=== PATIENT | male | born 1935 | race Caucasian/White ===

== ENCOUNTER 2016-11-23 10:00 | Outpatient (RCR) ==
--- NOTE | 2016-11-19 17:14 | RS.OPPTEV2 ---
Date of Note: 11/18/16 Visit #: 1 Date of Evaluation: 11/18/16 Treatment Diagnosis: Right LE pain History of Condition/Mechanism of Injury:: Patient reports having radiating symptoms into the right LE for years, but states constant pain and tingling into the right LE has been for the last few months. Prior Level of Function.....Patient was independent with: ADL's, Self Care, Caregiving, Ambulation/Mobility, Community Integration/Access Functional Limitations: ADL's, Sitting, Standing, Bending, Squatting, Ambulation , Community Access/Integration Current Subjective/complaints:: Patient reports right hip pain that is constant. States he has no symptoms on the left side. States Sitting for very long is the worst. He can stand and walk without too much discomfort. States he has tingling and numbness at times into the right LE. States the right knee will give out at times. He reports that he sleeps well. He is able to lay on the right side. He has not had any injections or procedures to his low back. Treatment Side (optional): Right Medical History Hx Home Medications: None Patient's Goals: His goal is to get relief of back pain. Pain Assessment - Pain Description Pain Location: right hip Current Pain Intensity: 5/10 Worst Pain Intensity: not quantified Functional Outcome Measure LE Functional Scale: 46 (46/80=42.5% impairment) - G Codes & Severity Modifier G Codes & Modifier: body position current CK. body position goal CI Source of G Code score: LE functional scale Observation - Observation Posture: Forward Head, Rounded Shoulders, Decreased Lumbar Lordosis Gait - Gait Pattern Gait Comments: Patient demonstrates a slow gait speed. He ambulates without an assistive device, with short stride length and a narrow base of support. - ROM Lumbar Flexion: Hand reach to Mid-Thighs Sidebending to Left: Reach to Mid-thigh Sidebending to Right: Reach to Mid-thigh Lumbar Spine ROM Limitations: Soft Tissue Tightness Comments: Patient reports muscle tightness with lumbar flexion. Reports no significant increased pain with lumbar flexion or extension. Does reports a little increased pain in the right low back/hip with left sidebending. Bilateral LE AROM WFL's. Patient reports pain with right hip internal rotation. - Strength Comments: Bilateral hip flexion and IR 4-/5, all else 4/5. Bilateral knees 4+/5 , ankles 4+/5. - Special Tests ROWENA Test: Negative Left, Negative Right SLR Test: Negative Left, Negative Right Seated Dural Stretch Test: Negative Left, Negative Right SI Joint Compression: Negative Palpation Comments:: Tenderness reports over the right SI region and superior and mid gluteal musculature. Increased muscle tone in this region. Sensation - Sensation Right Lower Extremity: Intact/Normal Left Lower Extremity: Intact/Normal Additional Comments: Additional Comments: SLR bilaterally to 25-30 degrees. - Treatment Modality: Ultrasound Parameters/Method Applied: 1.6 w/cm2 continuous X 10 mins to right SI and upper gluteal region . Patient Position: Left Sidelying Interventions - Exercise/Activities/Manual Therapy Exercises/Activities: none Manual Therapy: none - Charges Total Direct Minutes: 55 mins Total Treatment Time: 55 mins Procedures billed for this date of service:: PHI [place], US Assessment Assessment: Patient presents to therapy with a diagnosis of radiculopathy from the lumbar region. He exhibits symptoms of Piriformis syndrome: pain with sitting and hip IR, tenderness and increased muscle tone of the right gluteal region. Extremely tight hamstrings. Presents with potential to get relief of symptoms with modalities, stretching, and manual therapy to reduce his symptoms. Patient Education: Education of diagnosis, Body/Joint mechanics, Education of Plan of Care Rehab Potential: Good Short Term Goals Goal #1: Pt independent in basic HEP. Goal to be met by: 12/03/16 Goal #2: Right LE pain decreased to less than constant. Goal to be met by: 12/03/16 Goal #3: Bilateral SLR increased to 40 degrees. Goal to be met by: 12/03/16 General Assignment Reporter Goals Goal #1: Pt knows HEP and to cont. ex's to maintain functional level at D/C. Goal to be met by: 12/29/16 Goal #2: Score on LE functional scale improved to <19% impairment. Goal to be met by: 12/29/16 Goal #3: Pt to tolerate sitting as needed without right LE pain. Goal to be met by: 12/29/16 Plan - Treatment to be Provided Procedures: Therapeutic Exercises, Therapeutic Activity, Manual Therapy, Patient Education Modalities: Electrical Stimulation, Ultrasound/Phonophoresis, Cryotherapy, Hot Packs - Treatment Plan Frequency: 2-3 X week Duration: 4 weeks ORDER # VISITS AND/OR THROUGH DATE: 12/29/16 - Treatment Code (1) Leg pain Qualifiers: Laterality: right Qualified Description: Pain of right lower extremity Qualifier Code(s): (M79.604) Pain in right leg (2) Piriformis syndrome of right side Comments: G57.01
--- NOTE | 2016-11-23 11:01 | RS.OPPTDN ---
Subjective Date of Note: 11/23/16 Visit #: 2 Date of Evaluation: 11/18/16 Treatment Diagnosis: Right LE pain Current Subjective/complaints:: Patient states he did OK after the first visit. Offers no new problems today. Continues to report difficulty sitting, such as in a car. Pain Assessment - Pain Description Pain Location: right hip Current Pain Intensity: 5/10 - Treatment Modality: Ultrasound Parameters/Method Applied: 1.8 w/cm2 continuous X 10 mins to right SI and superior gluteal musculature. Patient Position: Left Sidelying - Heat/Cryotherapy Treatment: Hot Pack (X 15 mins to lumbar spine prior to US and stretching) Interventions - Exercise/Activities/Manual Therapy Exercises/Activities: Assisted patient with stretching to bilateral HS, SKTC, and Piriformis, with emphasis on the right LE. Total minutes of Exercise: X 14 Manual Therapy: none - Objective Findings Observations,measurements,etc.: bilateral HS very tight. Demonstrates greater tightness of hip external rotators on the right. - Charges Total Direct Minutes: 24 mins Total Treatment Time: 39 mins Procedures billed for this date of service:: HP, US, Ex Assessment: Patient demonstrates continued symptoms of Piriformis syndrome. He demonstrates good potential to benefit from progressed stretchinig to increase mobility of the right hip and decrease his right LE pain. Patient Education: Education of diagnosis, Body/Joint mechanics Short Term Goals Goal #1: Pt independent in basic HEP. Goal to be met by: 12/03/16 Goal #2: Right LE pain decreased to less than constant. Goal to be met by: 12/03/16 Goal #3: Bilateral SLR increased to 40 degrees. Goal to be met by: 12/03/16 It Software Developer Goals Goal #1: Pt knows HEP and to cont. ex's to maintain functional level at D/C. Goal to be met by: 12/29/16 Goal #2: Score on LE functional scale improved to <19% impairment. Goal to be met by: 12/29/16 Goal #3: Pt to tolerate sitting as needed without right LE pain. Goal to be met by: 12/29/16 Goal #4: Pt will demonstrate good lumbar AROM without pain. Goal to be met by: 12/29/16 Plan PLAN OF CARE EXPIRES ON:: 12/29/16 ORDER # VISITS AND/OR THROUGH DATE: 12/29/16 PLAN: Continue Plan of Care
== END 2016-11-24 ==
PROVIDERS: ATTEND Physician Assistant Medical
DX: M54.16 Radiculopathy, lumbar region (principal)

== ENCOUNTER 2016-12-23 10:30 | Outpatient (RCR) ==
--- NOTE | 2016-11-25 15:29 | RS.OPPTDN ---
Subjective Date of Note: 11/25/16 Visit #: 3 Date of Evaluation: 11/18/16 Treatment Diagnosis: Right LE pain Current Subjective/complaints:: Patient reports therapy may be helping a little. States he use to be able to walk quite a distance, but he cannot now. States his limited ambulation is not just because of the right LE pain. Pain Assessment - Pain Description Pain Location: right hip Current Pain Intensity: not quantifed - Treatment Modality: Ultrasound Parameters/Method Applied: 1.8 w/cms continuous X 15 mins to right lumbar/ SI region, and superior gluteal musculature. Patient Position: Left Sidelying - Heat/Cryotherapy Treatment: Hot Pack (X 20 mins to lumbar region) Interventions - Exercise/Activities/Manual Therapy Exercises/Activities: Assisted patient with stretching to bilateral HS, SKTC, and Piriformis, with emphasis on the right LE. Total minutes of Exercise: X 11 mins Manual Therapy: none - Charges Total Direct Minutes: 26 mins Total Treatment Time: 46 mins Procedures billed for this date of service:: HP, US, Ex Assessment: Patient reports possibly seeing a little improvement with therapy. Demonstrates the need for progressed stretching and modalities to reduce pain. Will progress to stability exercises once pain starts to subside more. Patient Education: Education of diagnosis, Activity Modification Short Term Goals Goal #1: Pt independent in basic HEP. Goal to be met by: 12/03/16 Goal #2: Right LE pain decreased to less than constant. Goal to be met by: 12/03/16 Goal #3: Bilateral SLR increased to 40 degrees. Goal to be met by: 12/03/16 Half-Way Goals Goal #1: Pt knows HEP and to cont. ex's to maintain functional level at D/C. Goal to be met by: 12/29/16 Goal #2: Score on LE functional scale improved to <19% impairment. Goal to be met by: 12/29/16 Goal #3: Pt to tolerate sitting as needed without right LE pain. Goal to be met by: 12/29/16 Goal #4: Pt will demonstrate good lumbar AROM without pain. Goal to be met by: 12/29/16 Plan PLAN OF CARE EXPIRES ON:: 12/29/16 ORDER # VISITS AND/OR THROUGH DATE: 12/29/16 PLAN: Progress Exercises
--- NOTE | 2016-11-29 11:03 | RS.OPPTDN ---
Subjective Date of Note: 11/29/16 Visit #: 4 Date of Evaluation: 11/18/16 Treatment Diagnosis: Right LE pain Current Subjective/complaints:: States symptoms are about the same. Pain in the right LE remains constant. Pain Assessment - Pain Description Pain Location: right hip Current Pain Intensity: not quantifed - Treatment Modality: Ultrasound Parameters/Method Applied: X 10 mins @ 1.8 w/cm2 continuous throughout the right lower lumbar, sacral, upper gluteal musculature. Patient Position: Left Sidelying - Heat/Cryotherapy Treatment: Hot Pack (X 20 mins to right hip/low back in left sidelying) Interventions - Exercise/Activities/Manual Therapy Exercises/Activities: Assisted patient with stretching to bilateral HS, SKTC, and Piriformis, with emphasis on the right LE. Total minutes of Exercise: X 13 mins Manual Therapy: none - Objective Findings Observations,measurements,etc.: bilateral HS continue to be very tight. right hip ER's very tight. - Charges Total Direct Minutes: 23 mins Total Treatment Time: 43 mins Procedures billed for this date of service:: Hp, US, EX Assessment: Patient continues to report constant right LE pain. States symptoms are "about the same". May change treatment on next visit to Estim and EX. Short Term Goals Goal #1: Pt independent in basic HEP. Goal to be met by: 12/03/16 Goal #2: Right LE pain decreased to less than constant. Goal to be met by: 12/03/16 Progress towards Goal:: No Change Goal #3: Bilateral SLR increased to 40 degrees. Goal to be met by: 12/03/16 Progress towards Goal:: Progressing Home Connect Lpn Goals Goal #1: Pt knows HEP and to cont. ex's to maintain functional level at D/C. Goal to be met by: 12/29/16 Goal #2: Score on LE functional scale improved to <19% impairment. Goal to be met by: 12/29/16 Goal #3: Pt to tolerate sitting as needed without right LE pain. Goal to be met by: 12/29/16 Goal #4: Pt will demonstrate good lumbar AROM without pain. Goal to be met by: 12/29/16 Plan PLAN OF CARE EXPIRES ON:: 12/29/16 ORDER # VISITS AND/OR THROUGH DATE: 12/29/16 PLAN: Continue Plan of Care
--- NOTE | 2016-12-02 10:46 | RS.OPPTDN ---
Subjective Date of Note: 12/02/16 Visit #: 5 Date of Evaluation: 11/18/16 Treatment Diagnosis: Right LE pain Current Subjective/complaints:: Mr. Grider states his symptoms are still pretty much constant in the right LE. Pain Assessment - Pain Description Pain Location: right hip Current Pain Intensity: not quantifed - Treatment Modality: Electrical Stim Unattended Parameters/Method Applied: 4 large pads: one lead to the right SI joint and right mid gluteal region, the other lead with pads on both sides of the lumbar spine X 20 mins at 120 peak volts HVGS. (prior to stretching) Patient Position: Left Sidelying Comments: Patient reports treatment felt good. - Heat/Cryotherapy Treatment: Hot Pack (with Estim to low back/right sacral/hip) Interventions - Exercise/Activities/Manual Therapy Exercises/Activities: Assisted patient with stretching to bilateral HS, SKTC, and Piriformis, with emphasis on the right LE. Total minutes of Exercise: X 14 mins Manual Therapy: none - Objective Findings Observations,measurements,etc.: right SLR 40-45 degrees, left SLR 35-40 degrees. - Charges Total Direct Minutes: 14 mins Total Treatment Time: 34 mins Procedures billed for this date of service:: Estim w/ Hp, EX Assessment: Patient with continue constant right LE pain. Changed treatment to Estim and continued with stretching to reduce his radiating symptoms. Patient Education: Body/Joint mechanics Short Term Goals Goal #1: Pt independent in basic HEP. Goal to be met by: 12/03/16 Goal #2: Right LE pain decreased to less than constant. Goal to be met by: 12/03/16 Progress towards Goal:: No Change Goal #3: Bilateral SLR increased to 40 degrees. Goal to be met by: 12/03/16 Progress towards Goal:: Progressing [facility] Goals Goal #1: Pt knows HEP and to cont. ex's to maintain functional level at D/C. Goal to be met by: 12/29/16 Goal #2: Score on LE functional scale improved to <19% impairment. Goal to be met by: 12/29/16 Goal #3: Pt to tolerate sitting as needed without right LE pain. Goal to be met by: 12/29/16 Goal #4: Pt will demonstrate good lumbar AROM without pain. Goal to be met by: 12/29/16 Plan PLAN OF CARE EXPIRES ON:: 12/29/16 ORDER # VISITS AND/OR THROUGH DATE: 12/29/16 PLAN: Continue Plan of Care
--- NOTE | 2016-12-06 11:07 | RS.OPPTDN ---
Subjective Date of Note: 12/06/16 Visit #: 6 Date of Evaluation: 11/18/16 Treatment Diagnosis: Right LE pain Current Subjective/complaints:: Patient reports he can ride in a car better without as much right LE pain. When asked if that meant his symptoms were no longer constant, he said "I can't tell". Pain Assessment - Pain Description Pain Location: right hip Current Pain Intensity: not quantifed - Treatment Modality: Electrical Stim Unattended Parameters/Method Applied: 4 large pads, one lead to right SI region and gluteal , other lead to left and right side of low back, X 20 mins HVGS up to 110 peak volts. Patient Position: Left Sidelying - Heat/Cryotherapy Treatment: Hot Pack (with EStim to back and right sacral/gluteal prior to stretching) Interventions - Exercise/Activities/Manual Therapy Exercises/Activities: Assisted patient with stretching to bilateral HS, SKTC, and Piriformis, with emphasis on the right LE. Patient instructed in HS stretching with use of towel or sheet behind the knee to extend his reach. Total minutes of Exercise: 13 mins Manual Therapy: none - Charges Total Direct Minutes: 13 mins Total Treatment Time: 33 mins Procedures billed for this date of service:: Hp, EStim, EX Assessment: Patient reports less right LE pain while riding in the car. He is unsure of frequency of pain. He demonstrates understanding of HS stretch and shows the ability to try it at home. He demonstrates potential to benefit from continued stretching and modalities to reduce his symptoms. Patient Education: Education of diagnosis, Home Exercise Program, Education of Plan of Care Short Term Goals Goal #1: Pt independent in basic HEP. Goal to be met by: 12/03/16 Progress towards Goal:: Progressing Goal #2: Right LE pain decreased to less than constant. Goal to be met by: 12/03/16 Progress towards Goal:: No Change Goal #3: Bilateral SLR increased to 40 degrees. Goal to be met by: 12/03/16 Progress towards Goal:: Progressing Comments:: Right HS flexibility 45-50 degrees, left 40 degrees. Residential Goals Goal #1: Pt knows HEP and to cont. ex's to maintain functional level at D/C. Goal to be met by: 12/29/16 Goal #2: Score on LE functional scale improved to <19% impairment. Goal to be met by: 12/29/16 Goal #3: Pt to tolerate sitting as needed without right LE pain. Goal to be met by: 12/29/16 Progress towards goal: Progressing Goal #4: Pt will demonstrate good lumbar AROM without pain. Goal to be met by: 12/29/16 Plan PLAN OF CARE EXPIRES ON:: 12/29/16 ORDER # VISITS AND/OR THROUGH DATE: 12/29/16 PLAN: Progress Exercises
--- NOTE | 2016-12-09 11:26 | RS.CSNOTE ---
PT Case Note Date of Note: 12/09/16 Title of document: Case Note Note: This is patient's 7th session. S: Patient says treatment is helping his back. Reports he performs daily exercises, but has also done this for years to stay active. He says sitting has become easier. O: Patient receives moist heat and hivolt estim (2 large pads @ 160 pk volts to the R lumbar paraspinals and SI joint) x 20 mins in sidelying. He receives passive stretching of SKTC, HS, Piriformis, and lower trunk rotation x 5. A: Patient verbalizing improved pain following treatment and is able to sit for more prolonged time without as much pain. He remains with moderate tightness with limited range to the R HS. P: Patient should continue receiving modalities and therex to further decrease his back pain/radiculopathy. No charge this date
--- NOTE | 2016-12-15 14:40 | RS.CSNOTE ---
PT Case Note Date of Note: 12/15/16 Title of document: 8 Note: This is the patients visit #8. S: Patient says treatment is helping his back pain but would like to go back to US. States he is working on HEP. O: Patient receives moist heat [id number] to the lowback in left side-lying prior to US and EX. US at 1.5w/cm2 [id number] to the bilateral lumbar paraspinals and S-I joint areas, also in left side-lying. He receives passive stretching of SKTC, HS, Piriformis, and lower trunk rotation. A: Patient continues to report improvement. He states he is doing more walking aroun his home. P: Continue modalities and EX to reduce pain and increase functional activity level. No charges for todays treatment session.
--- NOTE | 2016-12-16 13:44 | RS.CSNOTE ---
PT Case Note Date of Note: 12/16/16 Title of document: 9 Note: Patient reports he continues to feel better and denies any radicular symptoms or tenderness to the R LB. States he is "getting around" easier as well. He receives moist heat to mid to low back in supine x 20 mins. Continuous @ 1.5 w/cm2 to the R lumbar paraspinals in L sidelying. He receives passive stretching for SKTC, HS, Piriformis, and lower trunk rotation. Patient performs pillow squeezes, isometric hip abd x 10. He aj all stretching and added exercises today. He should continue with modalities and therex. He is to be reassessed next session. No charges this date.
--- NOTE | 2016-12-20 11:55 | RS.OPPTDN ---
Subjective Date of Note: 12/20/16 Visit #: 10 Date of Evaluation: 11/18/16 Treatment Diagnosis: Right LE pain Current Subjective/complaints:: Patient reports right radiating pain is better. Mostly having pain in the leg from the knee down. States he is walking better. Reports walking about a mile before coming to therapy this morning. Pain Assessment - Pain Description Pain Location: right hip Current Pain Intensity: difficulty quantifying - Treatment Modality: Ultrasound Parameters/Method Applied: 1.5 w/cm2 continuous X 10 mins to right lumbar/SI region. Patient Position: Left Sidelying - Heat/Cryotherapy Treatment: Hot Pack (X 20 mins prior to US in left sidelying) Interventions - Exercise/Activities/Manual Therapy Exercises/Activities: Assisted patient with stretching to bilateral HS, SKTC, and Piriformis, with emphasis on the right LE. Performed isometric hip flexion. Patient needs tactile cuing to understand how to perform isometric exercise. Performs isometric hip adduction with assistance. Total minutes of Exercise: 16 mins Manual Therapy: none - Objective Findings Observations,measurements,etc.: patient reassessed on LE functional scale. scores 52/80=35% impairment. Improvement was less than 9 points from the initial evaluation (which is considered the minimum level of detectable change. ). Lumbar AROM is WFL's with no reports of increased pain. HS remain tight, the right has gained flexibility with stretching in the department, and I feel is the main reason for less pain. - Charges Total Direct Minutes: 26 mins Total Treatment Time: 46 mins Procedures billed for this date of service:: Hp, US, EX Assessment: Patient reports improved ability to ambulate and less right LE pain. Reports improved mobility in general. Score on LE functional scale is 6 points better than at evaluation. Will plan to see for two more visits to focus on exercises and his ability to perform them on his own at home. Patient demonstrates compliance with HEP?: Yes Short Term Goals Goal #1: Pt independent in basic HEP. Goal to be met by: 12/27/16 Progress towards Goal:: Progressing Goal #2: Right LE pain decreased to less than constant. Goal to be met by: 12/27/16 Progress towards Goal:: No Change Comments:: But reports intensity and location has changed Goal #3: Bilateral SLR increased to 40 degrees. Goal to be met by: 12/27/16 Progress towards Goal:: Progressing House Detective Goals Goal #1: Pt knows HEP and to cont. ex's to maintain functional level at D/C. Goal to be met by: 01/03/17 Progress towards goal: Progressing Goal #2: Score on LE functional scale improved to <19% impairment. Goal to be met by: 01/03/17 Progress towards goal: Progressing Goal #3: Pt to tolerate sitting as needed without right LE pain. Goal to be met by: 01/03/17 Progress towards goal: Progressing Goal #4: Pt will demonstrate good lumbar AROM without pain. Goal to be met by: 01/03/17 Plan PLAN OF CARE EXPIRES ON:: 12/29/16 ORDER # VISITS AND/OR THROUGH DATE: 12/29/16 PLAN: Continue Plan of Care Comments:: two more treatment sessions with emphasis on exercises for HEP.
--- NOTE | 2016-12-23 11:43 | RS.OPPTDN ---
Subjective Date of Note: 12/23/16 Visit #: 11 Date of Evaluation: 11/18/16 Treatment Diagnosis: Right LE pain Current Subjective/complaints:: States his pain in his right LE is about the same. States he has been performing the stretching some at home. Pain Assessment - Pain Description Pain Location: right hip Current Pain Intensity: difficulty quantifying - Treatment Modality: Ultrasound Parameters/Method Applied: 1.5 w/cm2 continuous X 10 mins to right lumbar/SI region. Patient Position: Left Sidelying - Heat/Cryotherapy Treatment: Hot Pack (X 20 mins to right hip and low back prior to US and exercises) Interventions - Exercise/Activities/Manual Therapy Exercises/Activities: Assisted patient with stretching to bilateral HS, SKTC, and Piriformis, with emphasis on the right LE. Also receives assistance with trunk rotation. When encouraged to perform the stretching on his own, he needs tactile cues and verbal cues to maintain the stretch for at least 15 seconds for the most benefit. Performs isometric hip flexion. Again, patient needs tactile cuing to understand how to perform this isometric exercise. Total minutes of Exercise: 18 mins Manual Therapy: none HOME EXERCISE PROGRAM: HS and piriformis stretching - Charges Total Direct Minutes: 28 mins Total Treatment Time: 48 mins Procedures billed for this date of service:: HP, US, EX Assessment: Patient reports pain is about the same. He has frequently said that he is able to walk better/farther since having therapy. He demonstrates difficulty understanding proper technique with stretching and isometrics. He will benefit from one more visit to review and reinforce proper techique with all exercises for HEP. Further therapy after that point is not indicated, due to a lack of reduction of his symptoms. Patient Education: Education of diagnosis, Home Exercise Program, Activity Modification, Education of Plan of Care Short Term Goals Goal #1: Pt independent in basic HEP. Goal to be met by: 12/27/16 Progress towards Goal:: Progressing Goal #2: Right LE pain decreased to less than constant. Goal to be met by: 12/27/16 Progress towards Goal:: No Change Goal #3: Bilateral SLR increased to 40 degrees. Goal to be met by: 12/27/16 Progress towards Goal:: Met Medical Billing Assistant Goals Goal #1: Pt knows HEP and to cont. ex's to maintain functional level at D/C. Goal to be met by: 01/03/17 Progress towards goal: Progressing Goal #2: Score on LE functional scale improved to <19% impairment. Goal to be met by: 01/03/17 Progress towards goal: Progressing Goal #3: Pt to tolerate sitting as needed without right LE pain. Goal to be met by: 01/03/17 Progress towards goal: Progressing Goal #4: Pt will demonstrate good lumbar AROM without pain. Goal to be met by: 01/03/17 Plan PLAN OF CARE EXPIRES ON:: 12/29/16 ORDER # VISITS AND/OR THROUGH DATE: 12/29/16 Comments:: One more visit with focus on HEP. Patient needs more instruction to understand exercises and how to perform them properly.
== END 2016-12-24 ==
PROVIDERS: ATTEND Physician Assistant Medical
DX: M54.16 Radiculopathy, lumbar region (principal)

== ENCOUNTER 2016-12-27 11:23 | Outpatient (RCR) | END 2017-01-24 | PROVIDERS: ATTEND Physician Assistant Medical | DX: M54.16 Radiculopathy, lumbar region (principal) ==

== ENCOUNTER 2022-08-20 10:38 | Inpatient (IN) ==
--- NOTE | 2022-08-20 10:43 | ED.PDOC ---
General ED Provider: Dr. DEREJE RICCI MD Chief Complaint: Cough Stated Complaint: Patient presents with productive cough for 3-4 days. Denies fever, chills, dyspnea, orthopnea, chest pain, hemoptysis or edema. Time Seen by Provider: 08/20/22 10:42 Nursing and Triage Documentation Reviewed and Agree: Yes Does patient meet sepsis criteria?: No System Inflammatory Response Syndrome: Not Applicable Sepsis Protocol: For patient's 13 years and over: Temp is 96.8 and below OR 101 and greater Pulse >90 BPM Resp >20/minute Acutely Altered Mental Status Are patient's symptoms suggestive of a new infection, such as: -Pneumonia -Skin, Soft Tissue -Endocarditis -UTI -Bone, Joint Infection -Implantable Device -Acute Abdominal Infection -Wound Infection -Meningitis -Blood Stream Catheter Infection -Unknown Review of Systems Review Of Systems Constitutional: Reports No symptoms Eyes: Reports No symptoms Ears, Nose, Mouth, Throat: Reports No symptoms Respiratory: Reports Cough Cardiac: Reports No symptoms GI: Reports No symptoms : Reports No symptoms Musculoskeletal: Reports No symptoms Skin: Reports No symptoms Neurological: Reports No symptoms Endocrine: Reports No symptoms Hematologic/Lymphatic: Reports No symptoms All Other Systems: Reviewed and Negative [facility] Medical History (Updated 08/20/22 @ 11:44 by DEREJE RICCI MD) Goiter Hypertension Hyperthyroidism Social History (Updated 08/20/22 @ 10:54 by DAXA BUSTILLO RN) Smoking and tobacco status: Former smoker Physical Exam Physical Exam Appearance: Reports No pain distress, Well-nourished and Other (Patient is alert, oriented and in NAD. ) Ill-appearing: Mild Pain Distress: None Eyes: Reports Not Examined ENT: Reports Nose normal and Oropharynx normal Neck: Supple Respiratory: Reports Airway patent, Breath sounds diminished (right base) and Rhonchi (right sided) Cardiovascular: Reports RRR, No rub and No murmur GI/: Reports Soft, Nontender, No masses and Bowel sounds normal Musculoskeletal: Reports No edema Skin: Reports Warm, Dry and Normal color Neurological: Reports Alert and Oriented Psychiatric: Reports Affect appropriate and Mood appropriate Interpretation Radiology Interpretation Radiology Interpretation By: Radiologist Exam Interpreted: Portable CXR (RLL pneumonia) Critical Care Note Critical Care Note Total Critical Care Time (mins): 0 Course Course Hematology/Chemistry: 08/20/22 11:04 08/20/22 11:04 Orders, Labs, Meds: Lab Review 08/20/22 08/20/22 08/20/22 11:04 11:04 11:04 WBC 7.71 RBC 3.98 L Hgb 12.9 L Hct 39.0 L MCV 98.0 H MCH 32.4 H MCHC 33.1 RDW Coeff of Mike 13.5 Plt Count 210 Immature Gran % (Auto) 0.3 Neut % (Auto) 74.2 Lymph % (Auto) 15.0 [place] % (Auto) 9.2 Eos % (Auto) 1.0 Baso % (Auto) 0.3 Neut # (Auto) 5.7 Lymph # (Auto) 1.2 [place] # (Auto) 0.7 Eos # (Auto) 0.1 Baso # (Auto) 0.0 Immature Gran # (Auto) 0.0 Sodium 138.2 Potassium 3.57 Chloride 104.5 Carbon Dioxide 28.1 Anion Gap 9.17 BUN 16.8 Creatinine 0.88 Estimated GFR (MDRD) 82.00 BUN/Creatinine Ratio 19.09 Glucose 118.8 H Lactic Acid 1.47 Calcium 8.87 Total Bilirubin 1.89 H AST 20.8 ALT 14.5 Alkaline Phosphatase 92.3 Total Protein 7.04 Albumin 3.87 Globulin 3.17 Albumin/Globulin Ratio 1.22 Orders Category Date Time Status NEBULIZER TREATMENT Stat CARDIO 08/20/22 10:53 Ordered Saline Lock [ED IV/MEDIPORT/POWERPORT] .ONCE EMERGENCY 08/20/22 11:34 Active BLOOD CULTURE (ED ONLY) Stat LAB 08/20/22 11:04 Received CBC W/ AUTO DIFF Stat LAB 08/20/22 11:04 Completed CMP [COMPREHENSIVE METABOLIC PANEL] Stat LAB 08/20/22 11:04 Completed LACTIC ACID Stat LAB 08/20/22 11:04 Completed 0.9 % Sodium Chloride [Saline Flush] MEDS 08/20/22 11:34 Ordered 1 syr IVF PRN PRN Azithromycin Inj [Zithromax] 500 mg MEDS 08/20/22 11:34 Active 0.9 % Sodium Chloride [Sodium Chloride] 250 ml IV ONCE Ipratropium/Albuterol Neb [Duoneb] MEDS 08/20/22 10:53 Discontinued 3 ml NEB ONCE STA Sodium Chloride 0.9% [Sodium Chloride] 1,000 ml MEDS 08/20/22 11:34 Active IV BOLUS CXR [CHEST, 1V AP ONLY] Stat RADS 08/20/22 10:53 Completed Medications Generic Name Dose Route Start Last Admin Trade Name Freq PRN Reason Stop Dose Admin Sodium Chloride 1,000 mls @ 1,000 mls/hr 08/20/22 11:34 Sodium Chloride IV 08/20/22 12:33 BOLUS STA Azithromycin 500 mg/ Sodium 250 mls @ 125 mls/hr 08/20/22 11:34 Chloride IV 08/20/22 13:33 ONCE STA Sodium Chloride 1 syr 08/20/22 11:34 0.9% Sodium Chloride 10 Ml Disp.Syrin IVF PRN PRN To flush IV Discontinued Medications Generic Name Dose Route Start Last Admin Trade Name Freq PRN Reason Stop Dose Admin Albuterol/Ipratropium 3 ml 08/20/22 10:53 08/20/22 11:05 Ipratropium/Albuterol Vial.Neb NEB 08/20/22 10:54 3 ml ONCE STA Administration Vital Signs: Temp Pulse Resp BP Pulse Ox 08/20/22 10:38 98.5 F 65 25 H 114/57 L 81 L Discharge Plan Discharge Patient Disposition: ADMITTED INPATIENT Discharge Problem: Pneumonia, Hypoxia Did you review [place] [employer] for ALL controlled substances?: Not Applicable ED Provider: DEREJE RICCI Condition: Stable Physician Progress Note: []
[2022-08-20] MEDS ORDERED: DUONEB NEB STA (10:53)
[2022-08-20 11:18] LABS: BASOPHILS % (AUTO) 0.3 % (0.0-3.0); EOSINOPHILS # (AUTO) 0.1 K/ul (0.0-0.7); HEMOGLOBIN 12.9 g/dl (14.0-18.0); IMMATURE GRANULOCYTE % (AUTO) 0.3 % (0.0-5.0); LYMPHOCYTES # (AUTO) 1.2 K/uL (0.60-3.4); MEAN CORPUSCULAR HEMOGLOBIN 32.4 pg (27.0-31.0); MEAN CORPUSCULAR HGB CONC 33.1 (31.8-35.4); MONOCYTES # (AUTO) 0.7 K/uL (0.4-2.0); MONOCYTES % (AUTO) 9.2 (0-10); NEUTROPHILS # (AUTO) 5.7 K/ul (2.0-6.9); NEUTROPHILS % (AUTO) 74.2 % (42.2-75.2); PLATELET COUNT 210 10^3/uL (140-440); RDW COEFFICIENT OF VARIATION 13.5 % (11.6-14.8); RED BLOOD COUNT 3.98 10^6/ul (4.70-6.10); WHITE BLOOD COUNT 7.71 K/ul (4.2-10.2)
[2022-08-20 11:26] LABS: ALANINE AMINOTRANSFERASE 14.5 U/L (0-50); ALBUMIN 3.87 g/dL (3.5-5.0); ALKALINE PHOSPHATASE 92.3 U/L (56-119); ASPARTATE AMINO TRANSFERASE 20.8 U/L (17-59); BILIRUBIN,TOTAL 1.89 mg/dL (0.2-1.3); BLOOD UREA NITROGEN 16.8 mg/dL (9-20); CALCIUM 8.87 mg/dL (8.4-10.2); CARBON DIOXIDE 28.1 mmol/L (22-30.0); CHLORIDE 104.5 mmol/L (98-107); CREATININE 0.88 mg/dL (0.60-1.10); GLUCOSE 118.8 mg/dL (74-106); POTASSIUM 3.57 mmol/L (3.5-5.1); SODIUM 138.2 mmol/L (134.5-145); TOTAL PROTEIN 7.04 g/dL (6.3-8.2)
--- NOTE | 2022-08-20 11:31 | DI ---
EXAM: CHEST RADIOGRAPH TECHNIQUE: Single frontal chest radiograph. HISTORY: Productive cough COMPARISON: None. FINDINGS: There is a patchy infiltrate within the medial aspect of the right lower lung zone. Left lung is jagruti ar. Atherosclerotic aorta. The heart size is normal. The osseous structures are unremarkable. IMPRESSION: 1. Possible right lower lobe pneumonia
[2022-08-20] MEDS ORDERED: ZITHROMAX 500 MG in SODIUM CHLORIDE 250 ML IV STA (11:34)
[2022-08-20] MEDS ORDERED: SODIUM CHLORIDE 1,000 ML IV STA (11:34)
--- NOTE | 2022-08-20 11:48 | PCM ---
Chief Complaint Chief Complaint: productive cough History of Present Illness History of Present Illness: Patient presents with productive cough for 3-4 days. CXR showed RLL pneumonia. In addition, he has hypoxia requiring supplemental oxygen. Review of Systems Constitutional: Reports No symptoms Eyes: Reports No symptoms Ears: Reports No symptoms Nose: Reports No symptoms Throat: Reports No symptoms Mouth: Reports No symptoms Respiratory: Reports Cough (productive) Cardiovascular: Reports No symptoms Gastrointestinal: Reports No symptoms Genitourinary: Reports No symptoms Neurological: Reports No symptoms Musculoskeletal: Reports No symptoms Skin: Reports No symptoms Immunology: Reports No symptoms Hematology: Reports No symptoms Endocrine: Reports No symptoms Psychiatric: Reports No symptoms Habits: Denies Tobacco use, Substance use, Alcohol use or Other Allergies Allergies Allergy/AdvReac Type Severity Reaction Status Date / Time No Known Allergies Allergy Unverified 11/19/15 09:33 [facility] Medical History (Updated 08/20/22 @ 11:44 by DEREJE RICCI MD) Goiter Hypertension Hyperthyroidism Social History (Updated 08/20/22 @ 10:54 by DAXA BUSTILLO RN) Smoking and tobacco status: Former smoker Medications Medications: Medications Generic Name Dose Route Start Last Admin Trade Name Freq PRN Reason Stop Dose Admin Sodium Chloride 1,000 mls @ 1,000 mls/hr 08/20/22 11:34 Sodium Chloride IV 08/20/22 12:33 BOLUS STA Azithromycin 500 mg/ Sodium 250 mls @ 125 mls/hr 08/20/22 11:34 Chloride IV 08/20/22 13:33 ONCE STA Sodium Chloride 1 syr 08/20/22 11:34 0.9% Sodium Chloride 10 Ml Disp.Syrin IVF PRN PRN To flush IV Body Composition Height: 5 ft 9 in Weight: 73.482 kg Body Mass Index (BMI): 23.9 Vital Signs Temperature: 98.5 F Pulse Rate: 65 Respiratory Rate: 25 Blood Pressure: 114/57 O2 Sat by Pulse Oximetry: 81 Physical Examination Appearance: Reports Ill-appearing, No pain distress, Well-nourished and Other (Patient is mildly tachypneic. No respiratory distress.) Ill-appearing: Mild Pain Distress: None Eyes: Reports ADELA, EOMI and Conjunctiva clear ENT: Reports Nose normal and Oropharynx normal Neck: Supple Respiratory: Reports Airway patent, Breath sounds diminished (right base) and Rhonchi (right base) Cardiovascular: Reports RRR, No rub and No murmur GI/: Reports Soft, Nontender, No masses, Bowel sounds normal and No Organomegaly Musculoskeletal: Reports Normal strength, ROM intact and No edema Skin: Reports Warm, Dry and Normal color Neurological: Reports Sensation intact, Motor intact, Alert and Oriented Psychiatric: Reports Affect appropriate and Mood appropriate Lab/Tests/Diagnostic Imaging Lab/Tests/Diagnostic Imaging: Lab Review 08/20/22 08/20/22 08/20/22 11:04 11:04 11:04 WBC 7.71 RBC 3.98 L Hgb 12.9 L Hct 39.0 L MCV 98.0 H MCH 32.4 H MCHC 33.1 RDW Coeff of Mike 13.5 Plt Count 210 Immature Gran % (Auto) 0.3 Neut % (Auto) 74.2 Lymph % (Auto) 15.0 [place] % (Auto) 9.2 Eos % (Auto) 1.0 Baso % (Auto) 0.3 Neut # (Auto) 5.7 Lymph # (Auto) 1.2 [place] # (Auto) 0.7 Eos # (Auto) 0.1 Baso # (Auto) 0.0 Immature Gran # (Auto) 0.0 Sodium 138.2 Potassium 3.57 Chloride 104.5 Carbon Dioxide 28.1 Anion Gap 9.17 BUN 16.8 Creatinine 0.88 Estimated GFR (MDRD) 82.00 BUN/Creatinine Ratio 19.09 Glucose 118.8 H Lactic Acid 1.47 Calcium 8.87 Total Bilirubin 1.89 H AST 20.8 ALT 14.5 Alkaline Phosphatase 92.3 Total Protein 7.04 Albumin 3.87 Globulin 3.17 Albumin/Globulin Ratio 1.22 Orders Category Date Time Status NEBULIZER TREATMENT Stat CARDIO 08/20/22 10:53 Ordered Saline Lock [ED IV/MEDIPORT/POWERPORT] .ONCE EMERGENCY 08/20/22 11:34 Active BLOOD CULTURE (ED ONLY) Stat LAB 08/20/22 11:04 Received CBC W/ AUTO DIFF Stat LAB 08/20/22 11:04 Completed CMP [COMPREHENSIVE METABOLIC PANEL] Stat LAB 08/20/22 11:04 Completed LACTIC ACID Stat LAB 08/20/22 11:04 Completed 0.9 % Sodium Chloride [Saline Flush] MEDS 08/20/22 11:34 Ordered 1 syr IVF PRN PRN Azithromycin Inj [Zithromax] 500 mg MEDS 08/20/22 11:34 Active 0.9 % Sodium Chloride [Sodium Chloride] 250 ml IV ONCE Ipratropium/Albuterol Neb [Duoneb] MEDS 08/20/22 10:53 Discontinued 3 ml NEB ONCE STA Sodium Chloride 0.9% [Sodium Chloride] 1,000 ml MEDS 08/20/22 11:34 Active IV BOLUS CXR [CHEST, 1V AP ONLY] Stat RADS 08/20/22 10:53 Completed Medications Generic Name Dose Route Start Last Admin Trade Name Freq PRN Reason Stop Dose Admin Sodium Chloride 1,000 mls @ 1,000 mls/hr 08/20/22 11:34 Sodium Chloride IV 08/20/22 12:33 BOLUS STA Azithromycin 500 mg/ Sodium 250 mls @ 125 mls/hr 08/20/22 11:34 Chloride IV 08/20/22 13:33 ONCE STA Sodium Chloride 1 syr 08/20/22 11:34 0.9% Sodium Chloride 10 Ml Disp.Syrin IVF PRN PRN To flush IV Discontinued Medications Generic Name Dose Route Start Last Admin Trade Name Freq PRN Reason Stop Dose Admin Albuterol/Ipratropium 3 ml 08/20/22 10:53 08/20/22 11:05 Ipratropium/Albuterol Vial.Neb NEB 08/20/22 10:54 3 ml ONCE STA Administration Assessment (1) Pneumonia: Status: Acute Code(s): J18.9 - Pneumonia, unspecified organism SNOMED Code(s): 729666859 (2) Hypoxia: Status: Acute Code(s): R09.02 - Hypoxemia SNOMED Code(s): 364691983 Plan Plan: Patient to be admitted for IV antibiotics, nebulizer treatments and supplemental oxygen.
[2022-08-20 12:40] LABS: SARS COV-2 RNA RAPID NAAT NEGATIVE (NEGATIVE)
[2022-08-20 14:20] VITALS: BMI 23.6
[2022-08-20] MEDS: SODIUM CHLORIDE 1,000 ML IV SCH (15:04)
[2022-08-20] MEDS: ROCEPHIN 1 GM/50 ML D5W 1 GM/50 ML BAG IV SCH (15:04)
[2022-08-20] MEDS ORDERED: DUONEB NEB SCH (18:00)
[2022-08-20] MEDS: DUONEB NEB SCH (20:00)
[2022-08-20] MEDS: PEPCID PO SCH (20:21)
[2022-08-20] MEDS: DESYREL PO SCH (20:21)
[2022-08-20] MEDS: HYTRIN PO SCH (20:21)
[2022-08-20] MEDS ORDERED: SEROQUEL PO SCH (21:00)
[2022-08-21] MEDS: DUONEB NEB SCH ×4 (04:50→20:05)
[2022-08-21] MEDS: PEPCID PO SCH ×2 (08:28→20:24)
[2022-08-21] MEDS: ROCEPHIN 1 GM/50 ML D5W 1 GM/50 ML BAG IV SCH (08:29)
[2022-08-21] MEDS: SODIUM CHLORIDE 1,000 ML IV SCH (08:29)
[2022-08-21] MEDS ORDERED: NORVASC PO SCH (09:00)
[2022-08-21] MEDS: ZITHROMAX 500 MG in SODIUM CHLORIDE 250 ML IV SCH (09:22)
--- NOTE | 2022-08-21 10:04 | DI ---
EXAM: SINGLE VIEW CHEST XRAY. Date: 08/21/2022. Comparison: 08/20/2022 History: Pneumonia Findings: No acute osseous abnormality. There is improved aeration in the right lung base but with d evelopment of left basilar atelectasis. There is a possible implanted loop recorder device again obs erved over the cardiac silhouette. The lungs are clear with calcified granulomas. The cardiac silho uette and pulmonary vasculature are normal. ASVD is present. Impression: Resolution of the right basilar interstitial prominence, but with development of left ba silar atelectasis.
--- NOTE | 2022-08-21 13:46 | PCM.PROG ---
Date Seen by Provider: 08/21/22 Time Seen by Provider: 13:44 Subjective: dx. pneumonia and hypoxia Objective: Vitals: T=97.9 F, P=84, R=18, PK=822/68, SPO2=93 HEENT: []conjunctiva clear Neck: []supple Lungs: [] wheeze CVS: []rrr Abdomen: []nondistended Extremities: []warm and dry Neurological: []alert Skin: [] Lab/Tests/Diagnostic Imaging: [] 93% O2sat, wbc 7.7 (1) Pneumonia: Status: Acute Code(s): J18.9 - Pneumonia, unspecified organism SNOMED Code(s): 699216133 (2) Hypoxia: Status: Acute Code(s): R09.02 - Hypoxemia SNOMED Code(s): 839949271 Plan: am labs, continue nebs and antibiotics
[2022-08-21] MEDS: HYTRIN PO SCH (20:23)
[2022-08-21] MEDS: DESYREL PO SCH (20:24)
[2022-08-21] MEDS ORDERED: ROBITUSSIN DM SYRUP PO PRN ×2 (22:28→22:32)
[2022-08-22] MEDS: SODIUM CHLORIDE 1,000 ML IV SCH ×2 (00:14→15:44)
[2022-08-22] MEDS: DUONEB NEB SCH ×4 (04:50→20:10)
[2022-08-22] MEDS: ROCEPHIN 1 GM/50 ML D5W 1 GM/50 ML BAG IV SCH (08:22)
[2022-08-22] MEDS: NORVASC PO SCH (08:22)
[2022-08-22] MEDS: PEPCID PO SCH ×2 (08:22→20:32)
[2022-08-22] MEDS: ZITHROMAX 500 MG in SODIUM CHLORIDE 250 ML IV SCH (10:08)
--- NOTE | 2022-08-22 16:01 | PCM.PROG ---
Date Seen by Provider: 08/22/22 Time Seen by Provider: 15:59 Subjective: dx. pneumonia Objective: Vitals: T=95.8 F, P=70, R=14, VY=828/68, SPO2=96 HEENT: []conjunctiva clear Neck: []supple Lungs: [] wheezing CVS: []rrr Abdomen: []nontender Extremities: []warm and dry Neurological: []alert Skin: []pink Lab/Tests/Diagnostic Imaging: [] (1) Pneumonia: Status: Acute Code(s): J18.9 - Pneumonia, unspecified organism SNOMED Code(s): 331332670 (2) Hypoxia: Status: Acute Code(s): R09.02 - Hypoxemia SNOMED Code(s): 404501643 Plan: continue antibiotics and neb treatment
[2022-08-22] MEDS: DESYREL PO SCH (20:32)
[2022-08-22] MEDS: HYTRIN PO SCH (20:32)
[2022-08-23] MEDS: DUONEB NEB SCH ×2 (05:05→09:49)
[2022-08-23 05:06] VITALS: BP 149/72; TEMP 97.1
[2022-08-23] MEDS: SODIUM CHLORIDE 1,000 ML IV SCH (08:13)
[2022-08-23] MEDS: PEPCID PO SCH (09:16)
[2022-08-23] MEDS: NORVASC PO SCH (09:16)
--- NOTE | 2022-08-23 09:24 | RS.PTINEVL ---
Subjective - Patient information Date of Evaluation: 08/23/22 Date of Arrival on Unit: 08/20/22 Admitted From:: Home Diagnosis: pneumonia Usual Living Arrangement: teenage granddaughter Home Environment: House, Stairs (few) Medical History: Hypertension Medical History Comments:: hyperthyroid Medications: see chart Subjective Information/ Patient Comments:: pt states "I need to go home my is waiting on me." (pt's is .) pt is [facility]. - Level of function Prior to this admission, the patient could do the following:: Independent Selfcare, Independent Ambulation Current Level of Function: Partially Dependent Current Equipment Used at Home: Rollator Interventions - Objective Patient Orientation: Person, Place Current Interventions: Telemetry Observation: [facility] Range of Motion - ROM Right Upper Extremity AROM: WFL's Left Upper Extremity AROM: WFL's Right Lower Extremity AROM: WFL's Left Lower Extremity AROM: WFL's Muscle Strength - Muscle Strength Right Upper Extremity Strength: Mild Weakness (grossly 4/5) Left Upper Extremity Strength: Mild Weakness (grossly 4/5) Right Lower Extremity Strength: Mild Weakness (hip flex 4-/5, knee flex/ext 4/5, ankle DF/PF 4/5) Left Lower Extremity Strength: Mild Weakness (hip flex 4-/5, knee flex/ext 4/5, ankle DF/PF 4/5) Sensation - Sensation Right Upper Extremity Sensation: Intact/Normal Left Upper Extremity Sensation: Intact/Normal Right Lower Extremity Sensation: Intact/Normal Left Lower Extremity Sensation: Intact/Normal Palpation Palpation Findings: None/Normal Balance - Sitting Balance and Reactions Static Sitting Balance: Good Dynamic Sitting Balance: Fair - Standing Balance and Reactions Static Standing Balance: Poor Dynamic Standing Balance: Poor Standing Equilibrium Reactions: Delayed Left, Delayed Right Standing Protective Reactions: Delayed Left, Delayed Right Functional Mobility - Bed Mobility Comments:: pt seen sitting up on side of bed - Transfers Sit to Stand: Supervision Stand to Sit: CGA - Safety Awareness Safety Awareness: Poor FERNANDO INDEX SCORE: n/a Ambulation - Ambulation Assistive Device Used: Rollator Orthotic/Prosthetic Device: No Distance: 110 Assistance needed with Ambulation: CGA Gait Deviations: Forward posture, Short stride, Deviates from path Factors Affecting Ambulation: Decreased Balance, Weakness, Decreased Coordination, Decreased Safety, Cognitive Status, Limited Endurance Treatment time - Time with patient Length of Evaluation: 19 Total treatment time: 24 Patient Education - Education Patient Education: Activity Modification, Education of Plan of Care Teaching Recipient: Patient Teaching Methods: Discussion Comments: discussion with patient regarding POC, pt repeated that he needed to go home. Advised pt that the doctor would discuss that with him when he makes rounds. Assessment - Assessment Problem List:: Decreased level of function, Requires training/education, Decreased safety/Risk of falls, Weakness, Cognitive status limits abilities Rehab Potential: Good Further Therapy Indicated?: Yes Candidate for Swing Bed for Therapy Services?: Feel pt may not be a candidate for swing bed. Feel pt may benefit from 24 hour caregiver after dc due to cognitive status. Evaluation Complexity: HISTORY: Medium, EXAM OF BODY SYSTEMS: Medium, CLINICAL PRESENTATION: Medium, CLINICAL DECISION MAKING: Medium Patient's Goal(s): "go home" Short Term Goals GOAL #1: pt independent with rolling and scooting in bed. Goal to be met by: 08/25/22 GOAL #2: Transfer sup to/from sit SBA Goal to be met by: 08/25/22 GOAL #3: Transfer sit to/from stand independently. Goal to be met by: 08/25/22 GOAL #4: pt amb with rollator 140ft with SBA to CGA no LOB. Goal to be met by: 08/25/22 GOAL #5: Improve BLE strength 4 to 4+/5 Goal to be met by: 08/25/22 Payroll And Benefits Coordinator Goals GOAL #1: pt transfer sup to/from sit to/from stand independently. Goal to be met by: 08/27/22 GOAL #2: pt amb with rollator functional household distances with supervision Goal to be met by: 08/27/22 GOAL #3: Ascend/descend 2 steps with HR CGA Goal to be met by: 08/27/22 Plan Plan of Care: Therapeutic EX, Therapeutic Activity Other:: gait training Frequency of Treatment: 1-2 X day, as tolerated Duration of Treatment: 4 days Anticipated Discharge Destination: undetermined Treatment Diagnosis (ICD 10 Codes): impaired balance R 26.81. difficulty walking R 26.2. risk of falls Z91.81 Has the Physician been added for Co-signature?: Yes
[2022-08-23] MEDS ORDERED: LIDOCAINE HCL 1% SDV IM STA (10:01)
[2022-08-23] MEDS ORDERED: ROCEPHIN 1 GM VIAL IM ONE (10:01)
[2022-08-23] MEDS: ROCEPHIN 1 GM/50 ML D5W 1 GM/50 ML BAG IV SCH (10:02)
[2022-08-23 10:09] LABS: BASOPHILS % (AUTO) 0.4 % (0.0-3.0); EOSINOPHILS # (AUTO) 0.2 K/ul (0.0-0.7); EOSINOPHILS % (AUTO) 3.9 % (0.0-7.0); HEMATOCRIT 36.5 % (42.0-52.0); IMMATURE GRANULOCYTE % (AUTO) 0.2 % (0.0-5.0); LYMPHOCYTES # (AUTO) 0.6 K/uL (0.60-3.4); LYMPHOCYTES % (AUTO) 11.7 (10.0-50.0); MEAN CORPUSCULAR HEMOGLOBIN 32.2 pg (27.0-31.0); MEAN CORPUSCULAR HGB CONC 32.9 (31.8-35.4); MEAN CORPUSCULAR VOLUME 97.9 fl (80.0-94.0); MONOCYTES # (AUTO) 0.6 K/uL (0.4-2.0); MONOCYTES % (AUTO) 10.4 (0-10); NEUTROPHILS % (AUTO) 73.4 % (42.2-75.2); PLATELET COUNT 270 10^3/uL (140-440); RDW COEFFICIENT OF VARIATION 13.3 % (11.6-14.8); RED BLOOD COUNT 3.73 10^6/ul (4.70-6.10)
--- NOTE | 2022-08-23 10:14 | PCM.PROG ---
Date Seen by Provider: 08/23/22 Time Seen by Provider: 09:00 Subjective: Patient reports feeling much better. Objective: Vitals: T=97.1 F, P=82, R=18, CX=217/72, SPO2=95 Alert and in NAD. HEENT: [] Neck: [] Lungs: [] Chest clear. BS equal. CVS: [] RRR Abdomen: [] Extremities: []No edema Neurological: [] Skin: [] Lab/Tests/Diagnostic Imaging: [] (1) Pneumonia: Status: Acute Code(s): J18.9 - Pneumonia, unspecified organism SNOMED Code(s): 656895526 Assessment: Improved (2) Hypoxia: Status: Acute Code(s): R09.02 - Hypoxemia SNOMED Code(s): 615741133 Assessment: Improved Plan: Repeat CBC, CMP and CXR. DC today if studies are OK.
[2022-08-23 10:27] LABS: ALANINE AMINOTRANSFERASE 14.1 U/L (0-50); ALBUMIN 3.56 g/dL (3.5-5.0); ALKALINE PHOSPHATASE 78.7 U/L (56-119); ASPARTATE AMINO TRANSFERASE 22.1 U/L (17-59); BILIRUBIN,TOTAL 0.78 mg/dL (0.2-1.3); BLOOD UREA NITROGEN 9.4 mg/dL (9-20); CALCIUM 8.7 mg/dL (8.4-10.2); CARBON DIOXIDE 28.9 mmol/L (22-30.0); CHLORIDE 105.6 mmol/L (98-107); CREATININE 0.61 mg/dL (0.60-1.10); GLUCOSE 94.4 mg/dL (74-106); POTASSIUM 3.31 mmol/L (3.5-5.1); TOTAL PROTEIN 6.71 g/dL (6.3-8.2)
--- NOTE | 2022-08-23 11:12 | DI ---
EXAM: PA AND LATERAL VIEWS OF THE CHEST HISTORY: Shortness of breath and pneumonia COMPARISON: Chest x-ray 08/21/2022 FINDINGS: The cardiomediastinal silhouette is unchanged with atherosclerotic disease. There is no p neumothorax or pleural effusion. There is questionable developing consolidation in the left lower lo be. Lungs are hyperinflated. The osseous structures demonstrate degenerative disease. IMPRESSION: Lungs are hyperinflated with questionable developing consolidation in the left lower lob e suggestive of pneumonia.
--- NOTE | 2022-08-23 11:20 | PCM.DC ---
Final Diagnosis: pneumonia hypoxia Physical Exam Appearance: Well-appearing, No pain distress, Well-nourished and Other (Patient breathing easily.) Ill-appearing: None Pain Distress: None Eyes: Not Examined ENT: Nose normal and Oropharynx normal Neck: Supple Respiratory: Airway patent, Breath sounds clear, Breath sounds equal and Breath sounds diminished Cardiovascular: RRR, No rub and No murmur GI/: Soft, Nontender, No masses and Bowel sounds normal Musculoskeletal: Normal strength and No edema Skin: Warm, Dry and Normal color Neurological: Alert and Oriented Psychiatric: Affect appropriate and Mood appropriate (1) Pneumonia: Status: Acute Code(s): J18.9 - Pneumonia, unspecified organism SNOMED Code(s): 742139371 (2) Hypoxia: Status: Acute Code(s): R09.02 - Hypoxemia SNOMED Code(s): 213213359 Reason for Hospitalization: pneumonia and hypoxia Prognosis/Condition at Discharge: Condition at discharge was stable. Medications at Discharge: Patient discharged on azithromycin in addition to the same medication at admission. Education Provided to Patient and Family: pneumonia Follow-ups: Follow up with your primary care provider this week. Discharge Disposition: Home Hospital Course: Patient admitted with pneumonia and hypoxia. He received azithromycin and rocephin. He improved clinically and had acceptable oxygen saturation levels on room air at discharge. Plan: Follow up with your primary care provider this week.
== END 2022-08-23 12:50 | disposition home or self-care (01) | DRG 195 ==
LOC: ED 10:38 → MEDSURG A 12:53
PROVIDERS: ADMIT Surgery; ATTEND Surgery
DX: I10 Essential (primary) hypertension; Z91.81 History of falling; Z51.81 Encounter for therapeutic drug level monitoring; Z20.822 Contact with and (suspected) exposure to COVID-19; R26.81 Unsteadiness on feet; Z79.899 Other long term (current) drug therapy; R09.02 Hypoxemia; J18.9 Pneumonia, unspecified organism